=== PATIENT | male | born 1975 | race Caucasian/White ===

== ENCOUNTER 2017-01-03 11:04 | Emergency (ER) | payer OTHER ==
[~2017-01-03] VITALS: Ht 167.6 cm; Wt 90.3 kg
[~2017-01-03 11:04] MED LIST: ASPIR 8181 M1 PO; ATORVASTATIN CA80 MG PO; GLYBURIDE2.5 MG PO; LISINOPRIL5 MG PO; METFORMIN HCL1000 MG PO; METFORMIN HCL500 MG PO; METOPROLOL TART25 MG PO; METOPROLOL TART50 MG PO; NEURONTIN300 MG PO; PLAVIX75 MG PO; QUETIAPINE FUMA25 MG PO; RANITIDINE HCL300 M1 PO; TRADJENTA5 MG PO; VENLAFAXINE H37.5 M3 PO
[2017-01-03 12:25] LABS: HEMATOCRIT 45.9 % (38.0-50.0); MCH 31.4 PG (29.0-34.0); MCHC 35.7 G/DL (30.0-36.0); MCV 87.9 FL (86-99); MEAN PLAT.VOLUME 10.2 uM^3 (9.0-12.4); PLATELET COUNT 272 K/uL (156-360); RBC DIS.WIDTH-SD 38.5 % (39-53); RED BLOOD COUNT 5.22 M/uL (4.00-5.50); WHITE BLOOD COUNT 11.5 K/uL (4.1-10.2)
[2017-01-03 12:36] LABS: CHLORIDE 98 mEq/L (99-109); POTASSIUM 4.5 mEq/L (3.7-5.4); SODIUM 133 mEq/L (136-147)
[2017-01-03 12:39] LABS: ANION GAP 15 MEQ/L (2-14)
[2017-01-03 12:40] LABS: TOTAL BILIRUBIN 0.8 mg/dL (0.0-1.0)
[2017-01-03 12:42] LABS: ALKALINE PHOSPHATASE 98 IU/L (3-129); GFR ESTIMATE (CALCULATED) > 59 mL/min/
[2017-01-03 12:43] LABS: UREA NITROGEN (BUN) 14 mg/dL (9-23)
[2017-01-03 12:52] LABS: GLUCOSE 416 mg/dL (70-99)
[2017-01-03 14:24] LABS: ADD MIUA? NO; BILIRUBIN NEGATIVE; BLOOD NEGATIVE; COLOR YELLOW ((YELLOW)); GLUCOSE (STRIP) >=500; KETONES 5; LEUKOCYTES NEGATIVE; NITRITE NEGATIVE; PROTEIN (STRIP) NEGATIVE; SPECIFIC GRAVITY 1.036 (1.000-1.030); UCUL ADDED? NO; UROBILINOGEN 0.2 MG/DL (0.2-1.0)
[2017-01-03 14:29] LABS: CARBON DIOXIDE (BICARBONATE) 23.8 MEQ/L (20-31)
[2017-01-03 16:14] LABS: POINT-OF-CARE METER ID UU13113702
[2017-01-03] MEDS ORDERED: KETOCONAZOLE60 GM TP (16:50)
[2017-01-03 17:07] VITALS: BP 124/78
== END 2017-01-03 17:10 | disposition home or self-care (01) ==
LOC: EME 11:04
PROVIDERS: Physician Assistant
DX: E11.620 Type 2 diabetes mellitus with diabetic dermatitis (principal); B35.6 Tinea cruris; E11.65 Type 2 diabetes mellitus with hyperglycemia; Z79.84 Long term (current) use of oral hypoglycemic drugs; I10 Essential (primary) hypertension; I25.2 Old myocardial infarction; Z95.5 Presence of coronary angioplasty implant and graft; E78.5 Hyperlipidemia, unspecified; Z79.02 Long term (current) use of antithrombotics/antiplatelets; Z79.82 Long term (current) use of aspirin; F17.200 Nicotine dependence, unspecified, uncomplicated
CPT/HCPCS: 80053; 81003; 82010; 82803; 82948; 83605; 85027; 87040; 99281; 99285; J7030